=== PATIENT | female | born 1985 | race Caucasian/White ===

== ENCOUNTER → 2024-07-07 | Outpatient (CLI) | payer BC, MEDICAID, SELFPAY ==
--- NOTE | 2024-07-07 15:15 | XR_ITS ---
Examination: Diagnostic digital mammography, unilateral, left Computer aided detection 3-D breast Tomosynthesis, unilateral Date and time of exam: July 07, 2024 1543 hrs. Indications: Mammogram May 31, 2024 25 mm focal asymmetry retroareolar region left breast, 10 mm focal asymmetry outer left breast Technique: Nonmagnified MLO, CC views of the left breast have been obtained, reconstructed from 3-D Tomosynthesis images. R2 computer aided detection program utilized for evaluation of suspicious masses and/or abnormal calcifications. 3-D Tomosynthesis images obtained. Findings: The breast is heterogeneously dense, which may obscure small masses No suspicious mass outer left breast is noted There remains focal asymmetry retroareolar region left breast Impression: BI-RADS category 3: Probably benign findings One additional 6 month left mammogram follow-up is needed to document stability of focal asymmetry, 25 mm, in the retroareolar region left breast
--- NOTE | 2024-07-07 15:30 | XR_ITS ---
Examination: Breast ultrasound, unilateral, left complete Date and time of exam: July 07, 2024 at 1548 hrs. Indications: Mammogram May 21, 2024 25 mm focal asymmetry retroareolar region left breast and 10 mm focal asymmetry outer left breast CC view, family history breast cancer Technique: Real-time vernon scale ultrasonographic imaging performed left breast including all 4 quadrants as well as nipple retroareolar and axillary region. Findings: No cystic or solid mass Impression: BI-RADS Category 1: Negative study
== END | disposition home or self-care (01) ==
PROVIDERS: PCP Nurse Practitioner Family; Referring Provider Nurse Practitioner Family; Visit Provider Nurse Practitioner Family
DX: N64.89 Other specified disorders of breast (principal); Z80.3 Family history of malignant neoplasm of breast
CPT/HCPCS: 76641; 77061; 77065; G0279